=== PATIENT | male | born 1950 | race Caucasian/White ===

== ENCOUNTER 2023-02-17 10:30 | Day surgery (SDC) | payer OTHER ==
--- NOTE | 2023-02-16 10:25 | RAD REPORT ---
EXAM DESCRIPTION: RAD - Chest Pa And Lat (2 Views) - 02/16/2023 10:02 am CLINICAL HISTORY: Pre op pending heart catheterization. Hypertension COMPARISON: No comparisons TECHNIQUE: PA and lateral views of the chest were obtained. FINDINGS: The lungs are clear. Heart size is normal and central vasculature is within normal limits. No pleural effusion or pneumothorax seen. No acute bony finding noted. Right chest wall pacer in eula ce. IMPRESSION: No acute cardiopulmonary process.
[2023-02-16 10:38] LABS: Absolute Lymphocytes (CBC) 1.6 K/uL (0.7-4.9); Hematocrit 50.8 % (39.6-49.0); Lymphocytes % 21.2 % (15.3-44.8); MCV 93.3 fL (80-100); Platelets 198 thou/uL (152-406); RBC Red Blood Cell Count 5.44 M/uL (4.33-5.43)
[2023-02-16 10:53] LABS: Potassium 3.5 mEq/L (3.5-5.1)
--- NOTE | 2023-02-16 17:21 | EKG ---
Test Date: 2023-02-16 Test Time: 10:42:21 Pomology Teacher: YOSELYN MEASUREMENT RESULTS: Intervals: Rate: 83 NM: 134 QRSD: 142 QT: 410 QTc: 481 [place]: P: 81 NM: 134 QRS: -67 T: 95 INTERPRETIVE STATEMENTS: Electronic ventricular pacemaker No previous ECG available for comparison Electronically Signed On 02-16-23 17:19:46 PRODUCT APPLICATIONS ENGINEER by Js Couch
[2023-02-17] MEDS ORDERED: HEPARIN 5000 UNIT/ML 1 ML VIAL ONE (14:06)
[2023-02-17] MEDS ORDERED: FENTANYL CITR 100 MCG/2 ML ONE (14:06)
[2023-02-17] MEDS ORDERED: HEPA 1000U/500MLS 2,000 UNIT/1,000 ML BAG IV ONE (14:06)
[2023-02-17] MEDS ORDERED: MIDAZOLAM HCL 2 MG/2 ML INJ ONE (14:06)
[2023-02-17] MEDS ORDERED: LIDOCAINE 1% 20 ML MDV ONE (14:06)
[2023-02-17] MEDS ORDERED: NITROGLYCERIN/D5W 50 MG/250 ML BTL IV ONE (14:07)
[2023-02-17] MEDS ORDERED: VERAPAMIL HCL 10 MG/4 ML VIAL IV ONE (14:07)
[2023-02-17] MEDS ORDERED: NA CHLORIDE 0.9% 500 ML ONE (14:11)
[2023-02-17] MEDS ORDERED: ASPIRIN 81 MG CHEWABLE TABLET ONE (14:56)
[2023-02-17 16:29] VITALS: O2SAT 96
[2023-02-17 16:38] VITALS: BP 136/80
== END 2023-02-17 16:40 | disposition home or self-care (01) ==
LOC: CCL 10:30
PROVIDERS: ATTEND Internal Medicine
DX: I25.10 Atherosclerotic heart disease of native coronary artery without angina pectoris (principal); I50.9 Heart failure, unspecified; Z87.891 Personal history of nicotine dependence; Z79.899 Other long term (current) drug therapy; Z88.8 Allergy status to other drugs, medicaments and biological substances
CPT/HCPCS: 93005; 85025; 80048; 36415; 71046; 93458; 76937; C1893; Q9966; J1644; J2001; J2250; J3010; J7040